=== PATIENT | female | born 1950 | race Caucasian/White ===

== ENCOUNTER 2017-09-30 17:16 | Inpatient (IN) | payer OTHER, MEDICARE ==
--- NOTE | 2017-09-30 17:25 | PDOC ---
Rapid Medical Evaluation Time Seen by Provider: 09/30/17 17:24 Medical Evaluation: 09/30/17 17:30 Pt presents to the ED c/o near syncope this morning. Pt with hx of Afib. States she is SOB. Afib with RVR on EKG in triage Exam: Ambulatory,sweaty, AAOx3. Orders: labs, urine ekg, cxr Pt to proceed to ED for forther eval Discharge Disposition - Diagnosis SOB (shortness of breath), Near syncope - Referrals - Patient Instructions - Post Discharge Activity
[2017-09-30] MEDS ORDERED: SODIUM CHLORIDE 0.9% 500 ML INFUS.BAG IV ONE ×4 (18:06→20:16)
[2017-09-30] MEDS ORDERED: ACETAMINOPHEN 1000 MG/100 ML VIAL (NON FORMULARY) IVPB ONE (18:10)
[2017-09-30 18:19] LABS: URINE APPEARANCE CLEAR; URINE BILIRUBIN NEGATIVE (<2.0 mg/dL); URINE COLOR YELLOW; URINE GLUCOSE (UA) NEGATIVE (NEGATIVE); URINE KETONE NEGATIVE (NEGATIVE); URINE NITRITE NEGATIVE (NEGATIVE); URINE PROTEIN NEGATIVE (NEGATIVE); URINE UROBILINOGEN NEGATIVE mg/dL (0.2-1.0)
--- NOTE | 2017-09-30 18:19 | PDOC ---
History of Present Illness - General Chief Complaint: Weakness Stated Complaint: FATIGUE Time Seen by Provider: 09/30/17 17:24 - History of Present Illness Initial Comments: 09/30/17 18:19 67 yo F w a hx of Afib and catheter ablation, hypothyroidism, HTN is here after an episode of chest pain associated with severe SOB, lightheadedness and feeling like she was going to pass out. The patient came into the ER in rapid Afib. Her systolic BP at home was 84. She reports having had a fever yesterday for which she took tylenol. When she woke up this morning her heart was pounding and she became short of breath, was very nauseous and vomited. Her vomitus was NB/NB. She also endorses dysuria and frequency. 09/30/17 18:19 Past History - Past Medical History Allergies/Adverse Reactions: Allergies Allergy/AdvReac Type Severity Reaction Status Date / Time No Known Allergies Allergy Verified 09/30/17 17:31 Home Medications: Ambulatory Orders Azilsartan Medoxomil [Edarbi] 40 mg PO DAILY 09/30/17 Bupropion HCl [Bupropion Xl] 150 mg PO DAILY 09/30/17 Chlorthalidone 12.5 mg PO DAILY 09/30/17 Levothyroxine [Synthroid -] 75 mcg PO DAILY 09/30/17 Pantoprazole Sodium 40 mg PO PRN PRN 09/30/17 Rivaroxaban [Xarelto -] 20 mg PO DAILY 09/30/17 Sotalol HCl [Betapace -] 80 mg PO BID 09/30/17 COPD: No Other medical history: SYNCOPE, ATRIAL; FIB WITH RVR - Suicide/Smoking/Psychosocial Hx Smoking History: Never smoked Hx Alcohol Use: No Drug/Substance Use Hx: No Review of Systems - Review of Systems Comments:: 09/30/17 18:28 CONSTITUTIONAL: Positive: Fever, chills, diaphoresis Absent: generalized weakness, malaise, loss of appetite HEENT: Absent: rhinorrhea, nasal congestion, throat pain, throat swelling, difficulty swallowing, mouth swelling, ear pain, eye pain, visual Changes CARDIOVASCULAR: Positive: Chest pain, near-syncope, palpitations, irregular heart rate, lightheadedness, preipheral edema RESPIRATORY: Positive: shortness of breath, Absent: cough, dyspnea with exertion, orthopnea, wheezing, stridor, hemoptysis GASTROINTESTINAL: Positive: Nausea, vomiting Absent: abdominal pain, abdominal distension, diarrhea, constipation, melena, hematochezia GENITOURINARY: Positive: Dysuria, frequency Absent: urgency, hesitancy, hematuria, flank pain, genital pain MUSCULOSKELETAL: Absent: myalgia, arthralgia, joint swelling SKIN: Absent: rash, itching, pallor HEMATOLOGIC/IMMUNOLOGIC: Absent: easy bleeding, easy bruising, lymphadenopathy, frequent infections ENDOCRINE: Absent: unexplained weight gain, unexplained weight loss, heat intolerance, cold intolerance NEUROLOGIC: Absent: headache, focal weakness or paresthesias, dizziness, unsteady gait, seizure, mental status changes, bladder or bowel incontinence PSYCHIATRIC: Absent: anxiety, depression, suicidal or homicidal ideation, hallucinations. *Physical Exam - Vital Signs Last Vital Signs Temp Pulse Resp BP Pulse Ox 97.4 F L 134 H 12 147/66 99 09/30/17 17:31 09/30/17 17:31 09/30/17 17:31 09/30/17 17:31 09/30/17 17:31 - Physical Exam Comments: 09/30/17 18:30 GENERAL: Patient is sweating profusely. Well developed, well nourished. Awake and alert. No acute distress. HEENT: Normocephalic, atraumatic. PERRLA, EOMI. No conjunctival pallor. Sclera are non- icteric. Moist mucous membranes. Oropharynx is clear. NECK: Supple. Full ROM. No JVD. Carotid pulses 2+ and symmetric, without bruits. No thyromegaly. No lymphadenopathy. CARDIOVASCULAR: Patient is tachycardic. The rhythym is irregular - AFIB. No murmurs, rubs, or gallops. Distal pulses are 2+ and symmetric. PULMONARY: Patient is having difficulty taking deep breaths. She is SOB and tachypneic. Lungs clear to auscultation bilaterally. No wheezing, rales or rhonchi. ABDOMINAL: Soft. Non-tender. Non-distended. No rebound or guarding. No organomegaly. Normoactive bowel sounds. MUSCULOSKELETAL Normal range of motion at all joints. No bony deformities or tenderness. No CVA tenderness. EXTREMITIES: 1+ ankle edema. No cyanosis. No clubbing. No calf tenderness. SKIN: Hot and sweaty. Normal capillary refill. No rashes. No jaundice. NEUROLOGICAL: Alert, awake, appropriate. Cranial nerves 2-12 intact. No deficits to light touch and temperature in face, upper extremities and lower extremities. No motor deficits in the in face, upper extremities and lower extremities. Normoreflexic in the upper and lower extremities. Normal speech. Toes are down-going bilaterally. Gait is normal without ataxia. PSYCHIATRIC: Cooperative. Good eye contact. Appropriate mood and affect. ED Treatment Course - LABORATORY CBC & Chemistry Diagram: 09/30/17 17:57 10/02/17 05:30 Medical Decision Making - Medical Decision Making 09/30/17 18:34 67 yo F w a hx of Afib and catheter ablation, hypothyroidism, HTN is here after an episode of chest pain associated with severe SOB, lightheadedness, N/V, subjective fever, dysuria, rapid Afib, and is hypotensive. Assessment: she reports being febrile at home yesterday and having dysuria today. If she has an infection that can be the cause of her AFIB. Her BP in the ER has been consistently HYPOTENSIVE (88/69) despite her hypertensive triage BP. Plan: Sepsis workup given tachycardia, tachypnea, hypotension, subjective fever. -resuscitate with fluids then re-check her BP and recheck EKG. -Patient will be admitted. UA shows UTI - starting ceftriaxone. After a liter of NS she is still hypotensive to 93/60 - Going to give her Amio to control rhythym. 09/30/17 19:36 09/30/17 19:43 10/02/17 12:01 *DC/Admit/Observation/Transfer Diagnosis at time of Disposition: SOB (shortness of breath), Near syncope UTI (urinary tract infection) Qualifiers: Urinary tract infection type: site unspecified Hematuria presence: without hematuria Qualified Code(s): N39.0 - Urinary tract infection, site not specified - Discharge Dispostion Condition at time of disposition: Guarded Decision to Admit order: Yes - Referrals - Patient Instructions - Post Discharge Activity
[2017-09-30 18:24] LABS: EOS % 0.7 % (0-4.5); HEMATOCRIT 42.7 % (32.4-45.2); HEMOGLOBIN 14.6 GM/dL (10.7-15.3); MCH 30.5 pg (25.7-33.7); MCHC 34.3 g/dl (32.0-36.0); MEAN PLT VOLUME 9.2 fl (7.5-11.1); MONO % 12.6 % (3.8-10.2); NEUT % 48.7 % (42.8-82.8); PLATELET COUNT 240 K/MM3 (134-434); RBC 4.79 M/mm3 (3.60-5.2); RDW 13.3 % (11.6-15.6); WHITE BLOOD COUNT 4.9 K/mm3 (4.0-10.0)
[2017-09-30] MEDS ORDERED: ACETAMINOPHEN INJECTION 100 ML IVPB ONE (18:24)
[2017-09-30 18:28] LABS: URINE LEUK ESTERASE 2+ (NEGATIVE)
[2017-09-30 18:41] LABS: CALCIUM 9.1 mg/dL (8.5-10.1); PHOSPHOROUS 2.7 mg/dL (2.5-4.9)
[2017-09-30 18:43] LABS: ALBUMIN 3.5 g/dl (3.4-5.0); ANION GAP 9 (8-16); BLOOD UREA NITROGEN 17 mg/dL (7-18); CALCIUM 8.9 mg/dL (8.5-10.1); CHLORIDE 100 mmol/L (98-107); CO2 26 mmol/L (21-32); CREATININE 0.8 mg/dL (0.55-1.02); GLUCOSE,RANDOM 129 mg/dL (74-106); POTASSIUM 3.6 mmol/L (3.5-5.1); SGOT/AST 16 U/L (15-37); SGPT/ALT 29 U/L (12-78); SODIUM 135 mmol/L (136-145)
[2017-09-30 18:47] LABS: ALK PHOS 69 U/L (45-117); BILIRUBIN,TOTAL 0.4 mg/dL (0.2-1.0); N-TERMINAL BNP 384.67 pg/ml (5-125); TOT PROT 6.9 g/dl (6.4-8.2)
[2017-09-30 19:07] LABS: INR 1.07 (0.82-1.09); PROTHROMBIN TIME (PATIENT) 12.1 SEC (9.7-13.0)
[2017-09-30 19:15] LABS: EPI CELLS RARE /HPF (FEW); URINE HYALINE CAST 1 /lpf; URINE MUCUS RARE
[2017-09-30] MEDS ORDERED: METOPROLOL TARTRATE 5 MG/5 ML VIAL IVPUSH ONE (19:43)
--- NOTE | 2017-09-30 19:50 | PDOC ---
Attending Attestation - Resident Resident Name: Lalo Baumann - ED Attending Attestation I have performed the following: I have examined & evaluated the patient, The case was reviewed & discussed with the resident, I agree w/resident's findings & plan, Exceptions are as noted - HPI HPI: 09/30/17 19:45 "The patient is a 67 year old female, with a significant PMH of hypertension, hypothyroidism, atrial fibrillation on sotalol, who presents to the emergency department complaining of an episode of shortness of breath, lightheadedness and palpitations beginning this morning. The patient states upon waking up this morning she had palpitations, shortness of breath. The patient states she felt like she was going to pass out but denies any loss of consciousness. The patient also reports that she has been having fevers since last night. SHe endorses dysuria and urgency, as well as one episode of vomiting but denies abdominal pain or diarrhea. The patient denies leg swelling, calf tenderness, or headache. Denies diarrhea, melena, hematochezia, constipation, urinary frequency and hematuria. Allergies: NKA " - Physicial Exam PE: 09/30/17 19:50 "GENERAL: Awake, alert, and fully oriented, in no acute distress. HEAD: No signs of trauma EYES: PERRLA, EOMI, sclera anicteric, conjunctiva clear ENT: Auricles normal inspection, hearing grossly normal, nares patent, oropharynx clear without exudates. Moist mucosa NECK: Nontender, no stepoffs, Normal ROM, supple, no lymphadenopathy, JVD, or masses LUNGS: Breath sounds equal, clear to auscultation bilaterally. No wheezes, and no crackles HEART: irregularly irregular, normal S1 and S2, no murmurs, rubs or gallops ABDOMEN: Soft, nontender, normoactive bowel sounds. No guarding, no rebound. No masses EXTREMITIES: Normal range of motion, no edema. No clubbing or cyanosis. No cords, erythema, or tenderness NEUROLOGICAL: Cranial nerves II through XII intact. 5/5 strength and sensation in all extremities, Normal speech, normal gait, normal cerebellar function SKIN: Warm, Dry, normal turgor, no rashes or lesions noted. " - Medical Decision Making 09/30/17 19:50 67 F with SOB, palpitations, found to be in rapid afib. Pt also with fevers and chills with dysuria, concerning for possible sepsis from urinary source. Pt currently hypotensive. Will fluid resuscitate and rate control when BP is improved. - Labs, trop, BNP - Cultures - UA, CXR - IVF, tylenol - metoprolol when BP more stable
[2017-09-30] MEDS ORDERED: cefTRIAXone SODIUM 1 GM VIAL ONE (19:56)
[2017-09-30] MEDS ORDERED: METOPROLOL TARTRATE 5 MG/5 ML VIAL ONE (19:56)
[2017-09-30] MEDS ORDERED: AMIODARONE HCL 150 MG/3 ML VIAL IVPUSH ONE (20:51)
[2017-09-30] MEDS: AMIODARONE IN DEXTROSE,ISO-OSM 360 MG/200 ML BAG IVPB SCH (21:10)
[2017-09-30] MEDS ORDERED: RIVAROXABAN 15 MG TABLET PO ONE (22:09)
[2017-09-30] MEDS ORDERED: RIVAROXABAN 20 MG TABLET PO ONE (23:00)
[2017-10-01] MEDS: AMIODARONE IN DEXTROSE,ISO-OSM 360 MG/200 ML BAG IVPB SCH (03:20)
[2017-10-01 03:55] VITALS: BMI 32.0
[2017-10-01] MEDS: LEVOTHYROXINE NA 75 MCG TABLET (FP) PO SCH (10:34)
[2017-10-01] MEDS: PANTOPRAZOLE 40 MG TABLET (FP) PO SCH (10:34)
--- NOTE | 2017-10-01 10:44 | HP ---
DATE OF ADMISSION: 09/30/2017 HISTORY OF PRESENT ILLNESS: This is a 67-year-old female known to have atrial fibrillation, hypothyroidism, hypertension, status post catheter ablation, who came to the emergency room with severe chest pain and near syncope. She also had fever, dysuria. In the emergency room, she was diagnosed to have atrial fibrillation with rapid ventricular rate. Also has urine with WBC and leukocyte esterase. So, she got admitted. Dr. Boyle is her placement assistant. Consulted his associate on amiodarone drip. PHYSICAL EXAMINATION: General: This morning, patient is feeling better. Vital signs: BP 110/70, pulse 96 to 106 irregular, respirations 22, temperature 98. HEENT: Unremarkable. Neck: supple. No JVD. Lungs: No wheeze or rales. Heart: S1, S2 normal. No S3, S4. Abdomen: Soft. Extremities: Legs no edema. Neurologic: Grossly normal. DIAGNOSTIC DATA: Chest x-ray showed mild CHF. EKG atrial fibrillation with rapid ventricular rate. LABORATORY REPORTS: Urine leukocyte esterase 2+, WBC 19. INR 1.07. WBC 4.9, hemoglobin 14.6, platelets 240. Electrolytes are normal: Sodium 135, blood sugra 129. Troponin MB 0.06. B-peptide 38,000. TSH 0.55. FINAL DIAGNOSIS: Congestive heart failure, rapid atrial fibrillation, and urinary tract infection. PLAN: Cardiology medication according to the placement assistant. I will give her IV. Will follow. Frank [id number]
--- NOTE | 2017-10-01 11:01 | CON.CARD ---
Consult Consult Specialty:: Cardiology Referred by:: Megan Puente MD Reason for Consultation:: Rapid atrial fibrillation - History of Present Illness Chief Complaint: Palpitations, light-headedness History of Present Illness: The patient is a 67 year old female, with a significant PMH of hypertension, hypothyroidism, paroxysmal atrial fibrillation [id number] 3 post RFA PVI 2014 on sotalol and Xarelto presented to emergency department complaining of shortness of breath, lightheadedness without true syncope, chest tightness and palpitations. She also reports subjective fevers and dysuria, but denies orthopnea, PND or LE edema. She was noted to be in rapid afib with SBP 70s-80s, rate-controlled overnight with improvement of hemodynamics on amiodarone gtt. Confirms compliance with sotalol and Xarelto. - History Source History Provided By: Patient Limitations to Obtaining History: No Limitations - Past Medical History Cardio/Vascular: Yes: AFIB, HTN ...: No Endocrine: Yes: Hypothyroidism - Alcohol/Substance Use Hx Alcohol Use: No - Smoking History Smoking history: Never smoked Home Medications - Allergies Allergies/Adverse Reactions: Allergies Allergy/AdvReac Type Severity Reaction Status Date / Time No Known Allergies Allergy Verified 09/30/17 17:31 - Home Medications Home Medications: Ambulatory Orders Azilsartan Medoxomil [Edarbi] 40 mg PO DAILY 09/30/17 Bupropion HCl [Bupropion Xl] 150 mg PO DAILY 09/30/17 Chlorthalidone 12.5 mg PO DAILY 09/30/17 Levothyroxine [Synthroid -] 75 mcg PO DAILY 09/30/17 Pantoprazole Sodium 40 mg PO PRN PRN 09/30/17 Rivaroxaban [Xarelto -] 20 mg PO DAILY 09/30/17 Sotalol HCl [Betapace -] 80 mg PO BID 09/30/17 Review of Systems - Review of Systems Cardiovascular: reports: Chest Pain, Palpitations, Shortness of Breath Neurological: reports: Dizziness, Weakness Vital Signs: Vital Signs Temperature 97.3 F L 10/01/17 01:28 Pulse Rate 112 H 10/01/17 01:28 Respiratory Rate 20 10/01/17 01:28 Blood Pressure 92/56 10/01/17 01:28 O2 Sat by Pulse Oximetry (%) 97 09/30/17 23:00 Constitutional: Yes: No Distress, Calm Neck: Yes: Supple Respiratory: Yes: Regular, CTA Bilaterally Gastrointestinal: Yes: Normal Bowel Sounds, Soft Cardiovascular: Yes: Tachycardia, Pulse Irregular JVD: No Carotid Bruit: No Heart Sounds: Yes: S1, S2 Edema: No - Other Data Labs, Other Data: CBC, BMP 09/30/17 17:57 09/30/17 17:57 INR, PTT INR 1.07 (0.82-1.09) 09/30/17 17:57 Troponin, BNP 09/30/17 09/30/17 17:57 17:57 Troponin I 0.06 H B-Natriuretic Peptide 384.67 H Troponin, BNP 09/30/17 09/30/17 17:57 17:57 Troponin I 0.06 H B-Natriuretic Peptide 384.67 H Afib @ [address]-T changes QTc 432 msec Imaging - Results Chest X-ray: Report Reviewed (Congestion) Problem List - Problems (1) Atrial fibrillation with rapid ventricular response Code(s): I48.91 - UNSPECIFIED ATRIAL FIBRILLATION (2) S/P radiofrequency ablation operation for arrhythmia Code(s): Z98.890 - OTHER SPECIFIED POSTPROCEDURAL STATES; Z86.79 - PERSONAL HISTORY OF OTHER DISEASES OF THE CIRCULATORY SYSTEM (3) Hypertensive heart disease Code(s): I11.9 - HYPERTENSIVE HEART DISEASE WITHOUT HEART FAILURE Qualifiers: Heart failure presence: without heart failure Qualified Code(s): I11.9 - Hypertensive heart disease without heart failure (4) Hypothyroidism Code(s): E03.9 - HYPOTHYROIDISM, UNSPECIFIED Qualifiers: Hypothyroidism type: unspecified Qualified Code(s): E03.9 - Hypothyroidism , unspecified (5) Near syncope Code(s): R55 - SYNCOPE AND COLLAPSE (6) SOB (shortness of breath) Code(s): R06.02 - SHORTNESS OF BREATH (7) UTI (urinary tract infection) Code(s): N39.0 - URINARY TRACT INFECTION, SITE NOT SPECIFIED Qualifiers: Urinary tract infection type: site unspecified Hematuria presence: without hematuria Qualified Code(s): N39.0 - Urinary tract infection, site not specified Assessment/Plan 03/19/2017 Echo: Normal LV size and fxn LVEF 60-65%, mild LAE 4.1 cm, JENELLE with shunt, normal RV size and fxn, mild-mod MR, mild TR RVSP 30.7 06/04/2016 P-Myoview: No ischemia 1. Paroxysmal atrial fibrillation h/o RFA with RVR and altered hemodynamics improved with rate-control 2. H/o atypical atrial flutter post spontaneous cardioversion to sinus 2014 3. Hypertensive heart disease 4. Hypothyroidism 5. Demand ischemia 6. Hyperlipidemia with statin intolerance 7. OSAS compliant with cpap 8. Diastolic dysfunction, euvolemic P:1. Wean off amioadarone gtt, resume sotalol 80 bid, add verapamil 40 bid ( cardizem ineffectual in past) for improved rate-control, hold ARB pending improved hemodynamics, continue Xarelto, trend trops to document peak 2. If afib persists despite rate-control, plan for DCCV without JAKE guidance as patient confirms compliance with Xarelto 3. Empiric abx per C&S agree with switch off levofloxacin to ceftraixone given risk of QT prolongation while on verapamil and sotalol 4. Thank you for consultative opportunity
[2017-10-01] MEDS ORDERED: PT OWN MED DRAWER 7, Y5N ONE ×3 (11:09→20:38)
--- NOTE | 2017-10-01 11:35 | EKG ---
Test Reason : Blood Pressure : / mmHG Vent. Rate : 143 BPM Atrial Rate : 357 BPM P-R Int : 000 ms QRS Dur : 080 ms QT Int : 280 ms P-R-T Axes : 000 032 045 degrees QTc Int : 432 ms ATRIAL FIBRILLATION WITH RAPID VENTRICULAR RESPONSE WITH PREMATURE VENTRICULAR OR ABERRANTLY CONDUCTED COMPLEXES NONSPECIFIC ST AND T WAVE ABNORMALITY ABNORMAL ECG NO PREVIOUS ECGS AVAILABLE Confirmed by IRMA RUDOLPH MD ([id number]) on 10/01/2017 11:34:41 AM Referred By: Confirmed By:IRMA RUDOLPH MD
[2017-10-01] MEDS: SOTALOL HCL 80 MG TABLET (FP) PO SCH ×2 (12:17→21:21)
[2017-10-01] MEDS: VERAPAMIL HCL 40 MG TABLET (FP) PO SCH ×2 (13:39→21:21)
--- NOTE | 2017-10-01 13:39 | CON.ID ---
Consult Consult Specialty:: infectious diseases Referred by:: Reason for Consultation:: sepsis - History of Present Illness Chief Complaint: fever,weakness,uti History of Present Illness: 67 year old female, with a significant PMH of hypertension, hypothyroidism, paroxysmal atrial fibrillation post RFA PVI 09/10/2014 on sotalol and Xarelto presented to emergency department complaining of shortness of breath, lightheadedness , chest tightness and palpitations. patient also mentions that she has been having dysuria and when she came in the er was hypotensive in rapid afib patient states that she does not get utis and now she feels a bit ok patient has been worked up and has got a dose of levaquin and all cx are pending she has been in and out of sinus rhythm she also was given amiodrone - History Source History Provided By: Patient Limitations to Obtaining History: No Limitations - Past Medical History Cardio/Vascular: Yes: AFIB, HTN ...: No Endocrine: Yes: Hypothyroidism - Alcohol/Substance Use Hx Alcohol Use: No - Smoking History Smoking history: Never smoked Home Medications - Allergies Allergies/Adverse Reactions: Allergies Allergy/AdvReac Type Severity Reaction Status Date / Time No Known Allergies Allergy Verified 09/30/17 17:31 - Home Medications Home Medications: Ambulatory Orders Azilsartan Medoxomil [Edarbi] 40 mg PO DAILY 09/30/17 Bupropion HCl [Bupropion Xl] 150 mg PO DAILY 09/30/17 Chlorthalidone 12.5 mg PO DAILY 09/30/17 Levothyroxine [Synthroid -] 75 mcg PO DAILY 09/30/17 Pantoprazole Sodium 40 mg PO PRN PRN 09/30/17 Rivaroxaban [Xarelto -] 20 mg PO DAILY 09/30/17 Sotalol HCl [Betapace -] 80 mg PO BID 09/30/17 Review of Systems - Review of Systems Constitutional: reports: Weakness, Other Eyes: reports: No Symptoms HENT: reports: No Symptoms Neck: reports: No Symptoms Cardiovascular: reports: Chest Pain, Palpitations, Shortness of Breath Respiratory: reports: SOB, SOB on Exertion Gastrointestinal: reports: No Symptoms Genitourinary: reports: Burning, Dysuria Musculoskeletal: reports: No Symptoms Integumentary: reports: No Symptoms Neurological: reports: No Symptoms Endocrine: reports: No Symptoms Hematology/Lymphatic: reports: No Symptoms Psychiatric: reports: No Symptoms Physical Exam Vital Signs: Vital Signs Temperature 98 F 10/01/17 10:00 Pulse Rate 108 H 10/01/17 10:00 Respiratory Rate 20 10/01/17 10:00 Blood Pressure 107/78 10/01/17 10:00 O2 Sat by Pulse Oximetry (%) 97 09/30/17 23:00 Constitutional: Yes: No Distress, Calm, Obese Neck: Yes: Supple, Trachea Midline Cardiovascular: Yes: Pulse Irregular Respiratory: Yes: Regular, CTA Bilaterally Gastrointestinal: Yes: Normal Bowel Sounds, Soft Musculoskeletal: Yes: WNL Extremities: Yes: WNL Neurological: Yes: Alert, Oriented Psychiatric: Yes: Alert, Oriented Labs: CBC, BMP 09/30/17 17:57 09/30/17 17:57 Imaging - Results Chest X-ray: Report Reviewed, Image Reviewed Assessment/Plan Problem List - Problems (1) Atrial fibrillation with rapid ventricular response Code(s): I48.91 - UNSPECIFIED ATRIAL FIBRILLATION (2) S/P radiofrequency ablation operation for arrhythmia Code(s): Z98.890 - OTHER SPECIFIED POSTPROCEDURAL STATES; Z86.79 - PERSONAL HISTORY OF OTHER DISEASES OF THE CIRCULATORY SYSTEM (3) Hypertensive heart disease Code(s): I11.9 - HYPERTENSIVE HEART DISEASE WITHOUT HEART FAILURE Qualifiers: Heart failure presence: without heart failure Qualified Code(s): I11.9 - Hypertensive heart disease without heart failure (4) Hypothyroidism Code(s): E03.9 - HYPOTHYROIDISM, UNSPECIFIED Qualifiers: Hypothyroidism type: unspecified Qualified Code(s): E03.9 - Hypothyroidism , unspecified (5) Near syncope Code(s): R55 - SYNCOPE AND COLLAPSE (6) SOB (shortness of breath) Code(s): R06.02 - SHORTNESS OF BREATH (7) UTI (urinary tract infection) Code(s): N39.0 - URINARY TRACT INFECTION, SITE NOT SPECIFIED Qualifiers: Urinary tract infection type: site unspecified Hematuria presence: without hematuria Qualified Code(s): N39.0 - Urinary tract infection, site not specified plan will start patient on ceftriaxone will stop levaquin await for all cx to come back cardiac monitoring as per cardiology rest as per the team
[2017-10-01] MEDS: RIVAROXABAN 20 MG TABLET PO SCH (17:44)
[2017-10-01] MEDS ORDERED: ACETAMINOPHEN 325 MG TABLET (FP) PO PRN (18:52)
[2017-10-02] MEDS: LEVOTHYROXINE NA 75 MCG TABLET (FP) PO SCH (06:50)
[2017-10-02 07:15] LABS: ANION GAP 7 (8-16); BLOOD UREA NITROGEN 12 mg/dL (7-18); CALCIUM 8.7 mg/dL (8.5-10.1); CHLORIDE 108 mmol/L (98-107); CO2 27 mmol/L (21-32); CREATININE 0.7 mg/dL (0.55-1.02); GLUCOSE,RANDOM 87 mg/dL (74-106); SODIUM 142 mmol/L (136-145)
--- NOTE | 2017-10-02 08:58 | PN ---
Progress Note, Physician History of Present Illness: Remains in rapid afib despite verapamil. - Current Medication List Current Medications: Active Medications Acetaminophen (Tylenol -) 650 mg PO Q6H PRN PRN Reason: FEVER Last Admin: 10/01/17 18:57 Dose: 650 mg Bupropion HCl (Wellbutrin Xl -) 150 mg PO DAILY [facility] Last Admin: 10/01/17 11:31 Dose: 150 mg Ceftriaxone Sodium 1 gm/ (Dextrose) 50 mls @ 200 mls/hr IVPB DAILY [facility]; Protocol Levothyroxine Sodium (Synthroid -) 75 mcg PO DAILY@0700 [facility] Last Admin: 10/02/17 06:50 Dose: 75 mcg Pantoprazole Sodium (Protonix -) 40 mg PO DAILY [facility] Last Admin: 10/01/17 10:34 Dose: 40 mg Rivaroxaban (Xarelto -) 20 mg PO DAILY@1800 [facility] Last Admin: 10/01/17 17:44 Dose: 20 mg Sotalol HCl (Betapace -) 80 mg PO BID [facility] Last Admin: 10/01/17 21:21 Dose: 80 mg Verapamil HCl (Calan -) 40 mg PO BID [facility] Last Admin: 10/01/17 21:21 Dose: 40 mg - Objective Vital Signs: Vital Signs Temperature 97.6 F 10/02/17 05:00 Pulse Rate 83 10/02/17 05:00 Respiratory Rate 17 10/02/17 05:00 Blood Pressure 102/66 10/02/17 05:00 O2 Sat by Pulse Oximetry (%) 100 10/01/17 21:00 Constitutional: Yes: No Distress, Calm Neck: Yes: Supple Cardiovascular: Yes: Tachycardia, Pulse Irregular Respiratory: Yes: Regular, CTA Bilaterally Gastrointestinal: Yes: Normal Bowel Sounds, Soft, Abdomen, Obese Edema: Yes Edema: LLE: Trace, RLE: Trace Labs: CBC, BMP 09/30/17 17:57 10/02/17 05:30 INR, PTT INR 1.07 (0.82-1.09) 09/30/17 17:57 - ....Imaging EKG: Report Reviewed (Tele: Episodes of rapid afib) Problem List - Problems (1) Atrial fibrillation with rapid ventricular response Code(s): I48.91 - UNSPECIFIED ATRIAL FIBRILLATION (2) S/P radiofrequency ablation operation for arrhythmia Code(s): Z98.890 - OTHER SPECIFIED POSTPROCEDURAL STATES; Z86.79 - PERSONAL HISTORY OF OTHER DISEASES OF THE CIRCULATORY SYSTEM (3) Hypertensive heart disease Code(s): I11.9 - HYPERTENSIVE HEART DISEASE WITHOUT HEART FAILURE Qualifiers: Heart failure presence: without heart failure Qualified Code(s): I11.9 - Hypertensive heart disease without heart failure (4) Hypothyroidism Code(s): E03.9 - HYPOTHYROIDISM, UNSPECIFIED Qualifiers: Hypothyroidism type: unspecified Qualified Code(s): E03.9 - Hypothyroidism , unspecified (5) Near syncope Code(s): R55 - SYNCOPE AND COLLAPSE (6) SOB (shortness of breath) Code(s): R06.02 - SHORTNESS OF BREATH (7) UTI (urinary tract infection) Code(s): N39.0 - URINARY TRACT INFECTION, SITE NOT SPECIFIED Qualifiers: Urinary tract infection type: site unspecified Hematuria presence: without hematuria Qualified Code(s): N39.0 - Urinary tract infection, site not specified Assessment/Plan 03/19/2017 Echo: Normal LV size and fxn LVEF 60-65%, mild LAE 4.1 cm, JENELLE with shunt, normal RV size and fxn, mild-mod MR, mild TR RVSP 30.7 06/04/2016 P-Myoview: No ischemia 1. Paroxysmal atrial fibrillation h/o RFA with RVR and altered hemodynamics improved with rate-control 2. H/o atypical atrial flutter post spontaneous cardioversion to sinus 2014 3. Hypertensive heart disease 4. Hypothyroidism 5. Demand ischemia 6. Hyperlipidemia with statin intolerance 7. OSAS compliant with cpap 8. Diastolic dysfunction, euvolemic P:1. Continue sotalol 80 bid and increase verapamil 40 tid (cardizem ineffectual in past) for improved rate-control, hold ARB pending improved hemodynamics, continue Xarelto, trops have peaked 2. If afib persists despite rate-control, plan for DCCV without JAKE guidance as patient confirms compliance with Xarelto 3. Empiric ceftriaxone per C&S
[2017-10-02] MEDS ORDERED: cefTRIAXone SODIUM 1 GM VIAL ONE (09:36)
[2017-10-02] MEDS ORDERED: DEXTROSE 5%-WATER - 50 ML IVPB ONE (09:36)
[2017-10-02] MEDS: SOTALOL HCL 80 MG TABLET (FP) PO SCH ×2 (09:42→23:20)
[2017-10-02] MEDS: PANTOPRAZOLE 40 MG TABLET (FP) PO SCH (09:42)
[2017-10-02] MEDS: VERAPAMIL HCL 40 MG TABLET (FP) PO SCH ×3 (09:42→23:23)
[2017-10-02] MEDS: CEFTRIAXONE 1 GM in DEXTROSE 5%-WATER - 50 ML IVPB SCH (09:42)
--- NOTE | 2017-10-02 13:29 | PN ---
Progress Note, Physician Chief Complaint: Feels better History of Present Illness: Admitted with rapid afib ,CHF and UTI Case discussed with Dr Morgan will need cardiovertion on wednesday - Current Medication List Current Medications: Active Medications Acetaminophen (Tylenol -) 650 mg PO Q6H PRN PRN Reason: FEVER Last Admin: 10/01/17 18:57 Dose: 650 mg Bupropion HCl (Wellbutrin Xl -) 150 mg PO DAILY [facility] Last Admin: 10/02/17 09:42 Dose: 150 mg Ceftriaxone Sodium 1 gm/ (Dextrose) 50 mls @ 200 mls/hr IVPB DAILY [facility]; Protocol Last Admin: 10/02/17 09:42 Dose: 200 mls/hr Levothyroxine Sodium (Synthroid -) 75 mcg PO DAILY@0700 [facility] Last Admin: 10/02/17 06:50 Dose: 75 mcg Pantoprazole Sodium (Protonix -) 40 mg PO DAILY [facility] Last Admin: 10/02/17 09:42 Dose: 40 mg Rivaroxaban (Xarelto -) 20 mg PO DAILY@1800 [facility] Last Admin: 10/01/17 17:44 Dose: 20 mg Sotalol HCl (Betapace -) 80 mg PO BID [facility] Last Admin: 10/02/17 09:42 Dose: 80 mg Verapamil HCl (Calan -) 40 mg PO TID [facility] Last Admin: 10/02/17 09:42 Dose: 40 mg - Objective Vital Signs: Vital Signs Temperature 98 F 10/02/17 09:00 Pulse Rate 106 H 10/02/17 09:00 Respiratory Rate 18 10/02/17 09:00 Blood Pressure 120/82 10/02/17 09:00 O2 Sat by Pulse Oximetry (%) 100 10/02/17 09:00 Constitutional: Yes: Mild Distress Eyes: Yes: WNL HENT: Yes: WNL Neck: Yes: WNL Cardiovascular: Yes: Pulse Irregular Respiratory: Yes: WNL Gastrointestinal: Yes: WNL ...Rectal Exam: Yes: Deferred Genitourinary: Yes: WNL Breast(s): Yes: WNL Musculoskeletal: Yes: WNL Edema: No Neurological: Yes: Alert ...Motor Strength: WNL Psychiatric: Yes: Alert Labs: CBC, BMP 09/30/17 17:57 10/02/17 05:30 INR, PTT INR 1.07 (0.82-1.09) 09/30/17 17:57 Assessment/Plan mavis Thompson ID consult appreciated
--- NOTE | 2017-10-02 16:17 | PN ---
Progress Note, Physician History of Present Illness: doing well no complaints cx reports noted - Current Medication List Current Medications: Active Medications Acetaminophen (Tylenol -) 650 mg PO Q6H PRN PRN Reason: FEVER Last Admin: 10/01/17 18:57 Dose: 650 mg Bupropion HCl (Wellbutrin Xl -) 150 mg PO DAILY [facility] Last Admin: 10/02/17 09:42 Dose: 150 mg Ceftriaxone Sodium 1 gm/ (Dextrose) 50 mls @ 200 mls/hr IVPB DAILY [facility]; Protocol Last Admin: 10/02/17 09:42 Dose: 200 mls/hr Levothyroxine Sodium (Synthroid -) 75 mcg PO DAILY@0700 [facility] Last Admin: 10/02/17 06:50 Dose: 75 mcg Pantoprazole Sodium (Protonix -) 40 mg PO DAILY [facility] Last Admin: 10/02/17 09:42 Dose: 40 mg Rivaroxaban (Xarelto -) 20 mg PO DAILY@1800 [facility] Last Admin: 10/01/17 17:44 Dose: 20 mg Sotalol HCl (Betapace -) 80 mg PO BID [facility] Last Admin: 10/02/17 09:42 Dose: 80 mg Verapamil HCl (Calan -) 40 mg PO TID [facility] Last Admin: 10/02/17 15:32 Dose: 40 mg - Objective Vital Signs: Vital Signs Temperature 98.4 F 10/02/17 14:00 Pulse Rate 113 H 10/02/17 14:00 Respiratory Rate 20 10/02/17 14:00 Blood Pressure 121/75 10/02/17 14:00 O2 Sat by Pulse Oximetry (%) 100 10/02/17 09:00 Constitutional: Yes: No Distress, Calm Cardiovascular: Yes: S1, S2 Respiratory: Yes: Regular, CTA Bilaterally Gastrointestinal: Yes: Normal Bowel Sounds Musculoskeletal: Yes: WNL Extremities: Yes: WNL Neurological: Yes: Alert, Oriented Psychiatric: Yes: Alert, Oriented Labs: CBC, BMP 09/30/17 17:57 10/02/17 05:30 INR, PTT INR 1.07 (0.82-1.09) 09/30/17 17:57 Assessment/Plan Problem List - Problems (1) Atrial fibrillation with rapid ventricular response Code(s): I48.91 - UNSPECIFIED ATRIAL FIBRILLATION (2) S/P radiofrequency ablation operation for arrhythmia Code(s): Z98.890 - OTHER SPECIFIED POSTPROCEDURAL STATES; Z86.79 - PERSONAL HISTORY OF OTHER DISEASES OF THE CIRCULATORY SYSTEM (3) Hypertensive heart disease Code(s): I11.9 - HYPERTENSIVE HEART DISEASE WITHOUT HEART FAILURE Qualifiers: Heart failure presence: without heart failure Qualified Code(s): I11.9 - Hypertensive heart disease without heart failure (4) Hypothyroidism Code(s): E03.9 - HYPOTHYROIDISM, UNSPECIFIED Qualifiers: Hypothyroidism type: unspecified Qualified Code(s): E03.9 - Hypothyroidism , unspecified (5) Near syncope Code(s): R55 - SYNCOPE AND COLLAPSE (6) SOB (shortness of breath) Code(s): R06.02 - SHORTNESS OF BREATH (7) UTI (urinary tract infection) Code(s): N39.0 - URINARY TRACT INFECTION, SITE NOT SPECIFIED Qualifiers: Urinary tract infection type: site unspecified Hematuria presence: without hematuria Qualified Code(s): N39.0 - Urinary tract infection, site not specified plan continue current mgmt will see how patient does tomorrow might deescalate the abx
[2017-10-02] MEDS ORDERED: PT OWN MED DRAWER 7, Y5N ONE ×2 (16:39→20:19)
[2017-10-02] MEDS: RIVAROXABAN 20 MG TABLET PO SCH (17:08)
[2017-10-03] MEDS: LEVOTHYROXINE NA 75 MCG TABLET (FP) PO SCH (06:10)
[2017-10-03] MEDS: VERAPAMIL HCL 40 MG TABLET (FP) PO SCH ×3 (06:10→21:20)
[2017-10-03] MEDS ORDERED: PT OWN MED DRAWER 7, Y5N ONE ×2 (06:14→18:22)
--- NOTE | 2017-10-03 09:13 | PN ---
Progress Note, Physician Chief Complaint: Events noted Remains in AF with RVR at times History of Present Illness: Patient was seen and examined. Awake and alert. Chart was reviewed Denies chest pain or SOB Appears comfortable except for RVR - Current Medication List Current Medications: Active Medications Acetaminophen (Tylenol -) 650 mg PO Q6H PRN PRN Reason: FEVER Last Admin: 10/01/17 18:57 Dose: 650 mg Bupropion HCl (Wellbutrin Xl -) 150 mg PO DAILY [facility] Last Admin: 10/02/17 09:42 Dose: 150 mg Ceftriaxone Sodium 1 gm/ (Dextrose) 50 mls @ 200 mls/hr IVPB DAILY [facility]; Protocol Last Admin: 10/02/17 09:42 Dose: 200 mls/hr Levothyroxine Sodium (Synthroid -) 75 mcg PO DAILY@0700 [facility] Last Admin: 10/03/17 06:10 Dose: 75 mcg Pantoprazole Sodium (Protonix -) 40 mg PO DAILY [facility] Last Admin: 10/02/17 09:42 Dose: 40 mg Rivaroxaban (Xarelto -) 20 mg PO DAILY@1800 [facility] Last Admin: 10/02/17 17:08 Dose: 20 mg Sotalol HCl (Betapace -) 80 mg PO BID [facility] Last Admin: 10/02/17 23:20 Dose: 80 mg Verapamil HCl (Calan -) 40 mg PO TID [facility] Last Admin: 10/03/17 06:10 Dose: 40 mg - Objective Vital Signs: Vital Signs Temperature 97 F L 10/03/17 05:00 Pulse Rate 112 H 10/03/17 05:00 Respiratory Rate 16 10/03/17 05:00 Blood Pressure 101/76 10/03/17 05:00 O2 Sat by Pulse Oximetry (%) 97 10/02/17 20:00 HENT: Yes: Atraumatic Neck: Yes: Supple Cardiovascular: Yes: Pulse Irregular, S1, S2 Respiratory: Yes: CTA Bilaterally Gastrointestinal: Yes: Normal Bowel Sounds, Soft. No: Tenderness Edema: No Additional Findings/Remarks: - Review of Systems Constitutional: denies: Chills, Fever Cardiovascular: denies: Chest Pain, (+) Palpitations, denies: Shortness of Breath Respiratory: denies: Cough, Hemoptysis, Orthopnea, SOB, SOB on Exertion Gastrointestinal: denies: Abdominal Pain, Constipation, Diarrhea, Melena, Nausea , Rectal Bleeding, Vomiting Genitourinary: denies: Dysuria, Hematuria Musculoskeletal: denies: Back Pain, Joint Pain Neurological: denies: Dizziness, Headache, Numbness, Parasthesia, Seizure, Syncope, Weakness Problem List - Problems (1) Atrial fibrillation with rapid ventricular response Code(s): I48.91 - UNSPECIFIED ATRIAL FIBRILLATION (2) Hypertensive heart disease Code(s): I11.9 - HYPERTENSIVE HEART DISEASE WITHOUT HEART FAILURE Qualifiers: Heart failure presence: without heart failure Qualified Code(s): I11.9 - Hypertensive heart disease without heart failure (3) Hypothyroidism Code(s): E03.9 - HYPOTHYROIDISM, UNSPECIFIED Qualifiers: Hypothyroidism type: unspecified Qualified Code(s): E03.9 - Hypothyroidism , unspecified (4) S/P radiofrequency ablation operation for arrhythmia Code(s): Z98.890 - OTHER SPECIFIED POSTPROCEDURAL STATES; Z86.79 - PERSONAL HISTORY OF OTHER DISEASES OF THE CIRCULATORY SYSTEM (5) UTI (urinary tract infection) Code(s): N39.0 - URINARY TRACT INFECTION, SITE NOT SPECIFIED Qualifiers: Urinary tract infection type: site unspecified Hematuria presence: without hematuria Qualified Code(s): N39.0 - Urinary tract infection, site not specified Assessment/Plan 1. Paroxysmal atrial fibrillation h/o RFA with RVR 2. Hypertensive heart disease 3. Hypothyroidism 4. Demand ischemia 5. Hyperlipidemia with statin intolerance 6. OSAS compliant with CPAP 7. Diastolic dysfunction, euvolemic PLAN: 1. Titrate Sotalol up as tolerated and also titrate Verapamil for improved rate- control. Hold ARB pending improved hemodynamics and continue Xarelto 2. If AF persists despite rate-control, plan for DCCV without JAKE guidance as patient has been compliant with Xarelto 3. Empiric antibiotics Further plans are to follow Eldon Sorensen MD
[2017-10-03] MEDS ORDERED: DEXTROSE 5%-WATER - 50 ML IVPB ONE (09:19)
[2017-10-03] MEDS ORDERED: cefTRIAXone SODIUM 1 GM VIAL ONE (09:19)
[2017-10-03] MEDS: SOTALOL HCL 80 MG TABLET (FP) PO SCH ×2 (09:33→21:20)
[2017-10-03] MEDS: CEFTRIAXONE 1 GM in DEXTROSE 5%-WATER - 50 ML IVPB SCH (09:33)
[2017-10-03] MEDS: PANTOPRAZOLE 40 MG TABLET (FP) PO SCH (09:34)
[2017-10-03] MEDS ORDERED: INSULIN (NOVOLOG) ASPART 100 UNITS/ML 10ML VIAL ONE (11:20)
--- NOTE | 2017-10-03 11:29 | PN ---
Progress Note, Physician History of Present Illness: patient stable with rvr no complaints all results noted - Current Medication List Current Medications: Active Medications Acetaminophen (Tylenol -) 650 mg PO Q6H PRN PRN Reason: FEVER Last Admin: 10/01/17 18:57 Dose: 650 mg Bupropion HCl (Wellbutrin Xl -) 150 mg PO DAILY [facility] Last Admin: 10/03/17 09:34 Dose: 150 mg Ceftriaxone Sodium 1 gm/ (Dextrose) 50 mls @ 200 mls/hr IVPB DAILY [facility]; Protocol Last Admin: 10/03/17 09:33 Dose: 200 mls/hr Levothyroxine Sodium (Synthroid -) 75 mcg PO DAILY@0700 [facility] Last Admin: 10/03/17 06:10 Dose: 75 mcg Pantoprazole Sodium (Protonix -) 40 mg PO DAILY [facility] Last Admin: 10/03/17 09:34 Dose: 40 mg Rivaroxaban (Xarelto -) 20 mg PO DAILY@1800 [facility] Last Admin: 10/02/17 17:08 Dose: 20 mg Sotalol HCl (Betapace -) 80 mg PO BID [facility] Last Admin: 10/03/17 09:33 Dose: 80 mg Sotalol HCl (Betapace -) 80 mg PO ONCE ONE Stop: 10/03/17 15:01 Verapamil HCl (Calan -) 40 mg PO TID [facility] Last Admin: 10/03/17 06:10 Dose: 40 mg - Objective Vital Signs: Vital Signs Temperature 98.4 F 10/03/17 09:00 Pulse Rate 114 H 10/03/17 09:00 Respiratory Rate 20 10/03/17 09:00 Blood Pressure 126/67 10/03/17 09:00 O2 Sat by Pulse Oximetry (%) 97 10/02/17 20:00 Constitutional: Yes: No Distress, Calm Cardiovascular: Yes: Regular Rate and Rhythm, Tachycardia Respiratory: Yes: Regular, CTA Bilaterally Gastrointestinal: Yes: Normal Bowel Sounds, Soft Musculoskeletal: Yes: WNL Extremities: Yes: WNL Neurological: Yes: Alert, Oriented Psychiatric: Yes: Alert, Oriented Labs: CBC, BMP 09/30/17 17:57 10/02/17 05:30 INR, PTT INR 1.07 (0.82-1.09) 09/30/17 17:57 Assessment/Plan Problem List - Problems (1) Atrial fibrillation with rapid ventricular response Code(s): I48.91 - UNSPECIFIED ATRIAL FIBRILLATION (2) S/P radiofrequency ablation operation for arrhythmia Code(s): Z98.890 - OTHER SPECIFIED POSTPROCEDURAL STATES; Z86.79 - PERSONAL HISTORY OF OTHER DISEASES OF THE CIRCULATORY SYSTEM (3) Hypertensive heart disease Code(s): I11.9 - HYPERTENSIVE HEART DISEASE WITHOUT HEART FAILURE Qualifiers: Heart failure presence: without heart failure Qualified Code(s): I11.9 - Hypertensive heart disease without heart failure (4) Hypothyroidism Code(s): E03.9 - HYPOTHYROIDISM, UNSPECIFIED Qualifiers: Hypothyroidism type: unspecified Qualified Code(s): E03.9 - Hypothyroidism , unspecified (5) Near syncope Code(s): R55 - SYNCOPE AND COLLAPSE (6) SOB (shortness of breath) Code(s): R06.02 - SHORTNESS OF BREATH (7) UTI (urinary tract infection) Code(s): N39.0 - URINARY TRACT INFECTION, SITE NOT SPECIFIED Qualifiers: Urinary tract infection type: site unspecified Hematuria presence: without hematuria Qualified Code(s): N39.0 - Urinary tract infection, site not specified plan continue current mgmt stopped abx rest as per the team and cardiology
--- NOTE | 2017-10-03 12:39 | PN ---
Progress Note, Physician Chief Complaint: Feels much better - Current Medication List Current Medications: Active Medications Acetaminophen (Tylenol -) 650 mg PO Q6H PRN PRN Reason: FEVER Last Admin: 10/01/17 18:57 Dose: 650 mg Bupropion HCl (Wellbutrin Xl -) 150 mg PO DAILY [facility] Last Admin: 10/03/17 09:34 Dose: 150 mg Levothyroxine Sodium (Synthroid -) 75 mcg PO DAILY@0700 [facility] Last Admin: 10/03/17 06:10 Dose: 75 mcg Pantoprazole Sodium (Protonix -) 40 mg PO DAILY [facility] Last Admin: 10/03/17 09:34 Dose: 40 mg Rivaroxaban (Xarelto -) 20 mg PO DAILY@1800 [facility] Last Admin: 10/02/17 17:08 Dose: 20 mg Sotalol HCl (Betapace -) 80 mg PO BID [facility] Last Admin: 10/03/17 09:33 Dose: 80 mg Sotalol HCl (Betapace -) 80 mg PO ONCE ONE Stop: 10/03/17 15:01 Verapamil HCl (Calan -) 40 mg PO TID [facility] Last Admin: 10/03/17 06:10 Dose: 40 mg - Objective Vital Signs: Vital Signs Temperature 98.4 F 10/03/17 09:00 Pulse Rate 114 H 10/03/17 09:00 Respiratory Rate 20 10/03/17 09:00 Blood Pressure 126/67 10/03/17 09:00 O2 Sat by Pulse Oximetry (%) 97 10/02/17 20:00 Constitutional: Yes: Calm Eyes: Yes: WNL HENT: Yes: WNL Neck: Yes: WNL Cardiovascular: Yes: Pulse Irregular Respiratory: Yes: WNL Gastrointestinal: Yes: WNL ...Rectal Exam: Yes: Deferred Genitourinary: Yes: WNL Breast(s): Yes: WNL Edema: No Neurological: Yes: Alert Labs: CBC, BMP 09/30/17 17:57 10/02/17 05:30 INR, PTT INR 1.07 (0.82-1.09) 09/30/17 17:57 Assessment/Plan Continue same trt Cardiovertion in am
[2017-10-03] MEDS ORDERED: SOTALOL HCL 80 MG TABLET (FP) PO ONE (15:00)
[2017-10-03] MEDS: RIVAROXABAN 20 MG TABLET PO SCH (17:10)
[2017-10-04 06:19] LABS: BASO % 0.9 % (0-2.0); EOS % 2.5 % (0-4.5); HEMATOCRIT 39.8 % (32.4-45.2); HEMOGLOBIN 13.9 GM/dL (10.7-15.3); LYMPH % 57.7 % (8-40); MCH 30.8 pg (25.7-33.7); MCHC 34.9 g/dl (32.0-36.0); MEAN CELL VOLUME 88.1 fl (80-96); MEAN PLT VOLUME 9.2 fl (7.5-11.1); MONO % 8.3 % (3.8-10.2); NEUT % 30.6 % (42.8-82.8); PLATELET COUNT 240 K/MM3 (134-434); RBC 4.51 M/mm3 (3.60-5.2); RDW 13.3 % (11.6-15.6); WHITE BLOOD COUNT 6.8 K/mm3 (4.0-10.0)
[2017-10-04] MEDS: LEVOTHYROXINE NA 75 MCG TABLET (FP) PO SCH (06:31)
[2017-10-04] MEDS: VERAPAMIL HCL 40 MG TABLET (FP) PO SCH ×2 (06:31→14:58)
[2017-10-04 07:00] LABS: ANION GAP 8 (8-16); BLOOD UREA NITROGEN 15 mg/dL (7-18); CALCIUM 8.5 mg/dL (8.5-10.1); CHLORIDE 104 mmol/L (98-107); CO2 26 mmol/L (21-32); CREATININE 0.8 mg/dL (0.55-1.02); GLUCOSE,RANDOM 88 mg/dL (74-106); POTASSIUM 3.4 mmol/L (3.5-5.1); SODIUM 138 mmol/L (136-145)
[2017-10-04] MEDS ORDERED: POTASSIUM CHLORIDE ORAL LIQUID 20 MEQ/15 ML PO ONE (09:19)
--- NOTE | 2017-10-04 09:23 | PN ---
Progress Note, Physician Chief Complaint: Feels very anxious History of Present Illness: Scheduled for cardiovertion K low 3.4 will give 40 meq po now - Current Medication List Current Medications: Active Medications Acetaminophen (Tylenol -) 650 mg PO Q6H PRN PRN Reason: FEVER Last Admin: 10/01/17 18:57 Dose: 650 mg Bupropion HCl (Wellbutrin Xl -) 150 mg PO DAILY [facility] Last Admin: 10/03/17 09:34 Dose: 150 mg Levothyroxine Sodium (Synthroid -) 75 mcg PO DAILY@0700 [facility] Last Admin: 10/04/17 06:31 Dose: Not Given Pantoprazole Sodium (Protonix -) 40 mg PO DAILY [facility] Last Admin: 10/03/17 09:34 Dose: 40 mg Potassium Chloride (Potassium Chloride Oral Liquid) 40 meq PO ONCE ONE Stop: 10/04/17 09:20 Rivaroxaban (Xarelto -) 20 mg PO DAILY@1800 [facility] Last Admin: 10/03/17 17:10 Dose: 20 mg Sotalol HCl (Betapace -) 80 mg PO BID [facility] Last Admin: 10/03/17 21:20 Dose: 80 mg Verapamil HCl (Calan -) 40 mg PO TID [facility] Last Admin: 10/04/17 06:31 Dose: Not Given - Objective Vital Signs: Vital Signs Temperature 97.8 F 10/04/17 05:00 Pulse Rate 132 H 10/04/17 05:00 Respiratory Rate 22 10/04/17 05:00 Blood Pressure 114/67 10/04/17 05:00 O2 Sat by Pulse Oximetry (%) 98 10/03/17 22:00 Eyes: Yes: WNL HENT: Yes: WNL Neck: Yes: WNL Cardiovascular: Yes: Pulse Irregular Respiratory: Yes: WNL Gastrointestinal: Yes: Normal Bowel Sounds ...Rectal Exam: Yes: Deferred Genitourinary: Yes: WNL Breast(s): Yes: WNL Musculoskeletal: Yes: Muscle Weakness Edema: No Integumentary: Yes: WNL Neurological: Yes: Alert Labs: CBC, BMP 10/04/17 05:30 10/04/17 05:30 INR, PTT INR 1.07 (0.82-1.09) 09/30/17 17:57
[2017-10-04] MEDS: SOTALOL HCL 80 MG TABLET (FP) PO SCH (09:40)
[2017-10-04] MEDS: PANTOPRAZOLE 40 MG TABLET (FP) PO SCH (09:40)
[2017-10-04] MEDS ORDERED: LIDOCAINE HCL/PF 2% SDV 5ML VIAL ONE (12:21)
[2017-10-04] MEDS ORDERED: PROPOFOL 20 ML ONE (12:21)
[2017-10-04 13:12] VITALS: BP 100/67; PULSE 50
--- NOTE | 2017-10-04 13:12 | PN ---
Progress Note, Physician History of Present Illness: stable post electroconversion stable - Current Medication List Current Medications: Active Medications Acetaminophen (Tylenol -) 650 mg PO Q6H PRN PRN Reason: FEVER Last Admin: 10/01/17 18:57 Dose: 650 mg Bupropion HCl (Wellbutrin Xl -) 150 mg PO DAILY [facility] Last Admin: 10/03/17 09:34 Dose: 150 mg Levothyroxine Sodium (Synthroid -) 75 mcg PO DAILY@0700 [facility] Last Admin: 10/04/17 06:31 Dose: Not Given Pantoprazole Sodium (Protonix -) 40 mg PO DAILY [facility] Last Admin: 10/04/17 09:40 Dose: 40 mg Rivaroxaban (Xarelto -) 20 mg PO DAILY@1800 [facility] Last Admin: 10/03/17 17:10 Dose: 20 mg Sotalol HCl (Betapace -) 80 mg PO BID [facility] Last Admin: 10/04/17 09:40 Dose: 80 mg Verapamil HCl (Calan -) 40 mg PO TID [facility] Last Admin: 10/04/17 06:31 Dose: Not Given - Objective Vital Signs: Vital Signs Temperature 98.1 F 10/04/17 12:42 Pulse Rate 50 L 10/04/17 13:12 Respiratory Rate 20 10/04/17 13:12 Blood Pressure 100/67 10/04/17 13:12 O2 Sat by Pulse Oximetry (%) 98 10/04/17 13:12 Constitutional: Yes: No Distress, Calm Cardiovascular: Yes: Regular Rate and Rhythm Respiratory: Yes: Regular, CTA Bilaterally Gastrointestinal: Yes: Normal Bowel Sounds, Soft Musculoskeletal: Yes: WNL Extremities: Yes: WNL Neurological: Yes: Alert, Oriented Psychiatric: Yes: Alert, Oriented Labs: CBC, BMP 10/04/17 05:30 10/04/17 05:30 INR, PTT INR 1.07 (0.82-1.09) 09/30/17 17:57 Assessment/Plan Problem List - Problems (1) Atrial fibrillation with rapid ventricular response Code(s): I48.91 - UNSPECIFIED ATRIAL FIBRILLATION (2) S/P radiofrequency ablation operation for arrhythmia Code(s): Z98.890 - OTHER SPECIFIED POSTPROCEDURAL STATES; Z86.79 - PERSONAL HISTORY OF OTHER DISEASES OF THE CIRCULATORY SYSTEM (3) Hypertensive heart disease Code(s): I11.9 - HYPERTENSIVE HEART DISEASE WITHOUT HEART FAILURE Qualifiers: Heart failure presence: without heart failure Qualified Code(s): I11.9 - Hypertensive heart disease without heart failure (4) Hypothyroidism Code(s): E03.9 - HYPOTHYROIDISM, UNSPECIFIED Qualifiers: Hypothyroidism type: unspecified Qualified Code(s): E03.9 - Hypothyroidism , unspecified (5) Near syncope Code(s): R55 - SYNCOPE AND COLLAPSE (6) SOB (shortness of breath) Code(s): R06.02 - SHORTNESS OF BREATH (7) UTI (urinary tract infection) Code(s): N39.0 - URINARY TRACT INFECTION, SITE NOT SPECIFIED Qualifiers: Urinary tract infection type: site unspecified Hematuria presence: without hematuria Qualified Code(s): N39.0 - Urinary tract infection, site not specified plan continue current mgmt stopped abx rest as per the team and cardiology monitor post cardioversion
[2017-10-04 13:14] VITALS: TEMP 98.2
--- NOTE | 2017-10-04 13:15 | PN ---
Progress Note, Physician Chief Complaint: Events noted Remains in AF with RVR at times For synchronized cardioversion History of Present Illness: Patient was seen and examined. Awake and alert. Chart was reviewed Denies chest pain or SOB S/P synchronized cardioversion to sinus rhythm - Current Medication List Current Medications: Active Medications Acetaminophen (Tylenol -) 650 mg PO Q6H PRN PRN Reason: FEVER Last Admin: 10/01/17 18:57 Dose: 650 mg Bupropion HCl (Wellbutrin Xl -) 150 mg PO DAILY [facility] Last Admin: 10/03/17 09:34 Dose: 150 mg Levothyroxine Sodium (Synthroid -) 75 mcg PO DAILY@0700 [facility] Last Admin: 10/04/17 06:31 Dose: Not Given Pantoprazole Sodium (Protonix -) 40 mg PO DAILY [facility] Last Admin: 10/04/17 09:40 Dose: 40 mg Rivaroxaban (Xarelto -) 20 mg PO DAILY@1800 [facility] Last Admin: 10/03/17 17:10 Dose: 20 mg Sotalol HCl (Betapace -) 80 mg PO BID [facility] Last Admin: 10/04/17 09:40 Dose: 80 mg Verapamil HCl (Calan -) 40 mg PO TID [facility] Last Admin: 10/04/17 06:31 Dose: Not Given - Objective Vital Signs: Vital Signs Temperature 98.2 F 10/04/17 13:13 Pulse Rate 50 L 10/04/17 13:13 Respiratory Rate 18 10/04/17 13:13 Blood Pressure 100/67 10/04/17 13:13 O2 Sat by Pulse Oximetry (%) 98 10/04/17 13:13 HENT: Yes: Atraumatic Neck: Yes: Supple Cardiovascular: Yes: Regular Rate and Rhythm, Bradycardia, S1, S2 Respiratory: Yes: CTA Bilaterally Gastrointestinal: Yes: Normal Bowel Sounds, Soft. No: Tenderness Edema: No Additional Findings/Remarks: - Review of Systems Constitutional: denies: Chills, Fever Cardiovascular: denies: Chest Pain, (+) Palpitations, denies: Shortness of Breath Respiratory: denies: Cough, Hemoptysis, Orthopnea, SOB, SOB on Exertion Gastrointestinal: denies: Abdominal Pain, Constipation, Diarrhea, Melena, Nausea , Rectal Bleeding, Vomiting Genitourinary: denies: Dysuria, Hematuria Musculoskeletal: denies: Back Pain, Joint Pain Neurological: denies: Dizziness, Headache, Numbness, Parasthesia, Seizure, Syncope, Weakness Labs: CBC, BMP 10/04/17 05:30 10/04/17 05:30 INR, PTT INR 1.07 (0.82-1.09) 09/30/17 17:57 Problem List - Problems (1) Atrial fibrillation with rapid ventricular response Code(s): I48.91 - UNSPECIFIED ATRIAL FIBRILLATION (2) Hypertensive heart disease Code(s): I11.9 - HYPERTENSIVE HEART DISEASE WITHOUT HEART FAILURE Qualifiers: Heart failure presence: without heart failure Qualified Code(s): I11.9 - Hypertensive heart disease without heart failure (3) Hypothyroidism Code(s): E03.9 - HYPOTHYROIDISM, UNSPECIFIED Qualifiers: Hypothyroidism type: unspecified Qualified Code(s): E03.9 - Hypothyroidism , unspecified (4) S/P radiofrequency ablation operation for arrhythmia Code(s): Z98.890 - OTHER SPECIFIED POSTPROCEDURAL STATES; Z86.79 - PERSONAL HISTORY OF OTHER DISEASES OF THE CIRCULATORY SYSTEM (5) UTI (urinary tract infection) Code(s): N39.0 - URINARY TRACT INFECTION, SITE NOT SPECIFIED Qualifiers: Urinary tract infection type: site unspecified Hematuria presence: without hematuria Qualified Code(s): N39.0 - Urinary tract infection, site not specified Assessment/Plan 1. Paroxysmal atrial fibrillation h/o RFA with RVR - s/p cardioversion to sinus rhythm 2. Hypertensive heart disease 3. Hypothyroidism 4. Demand ischemia 5. Hyperlipidemia with statin intolerance 6. OSAS compliant with CPAP 7. Diastolic dysfunction, euvolemic PLAN: 1. Continue Sotalol as tolerated and also continue Verapamil for improved rate- control. Hold ARB pending improved hemodynamics and continue Xarelto 2. If AF persists despite cardioversion, she may need RFA again 3. Discharge planning Discussed with Dr. Penn this morning Eldon Sorensen MD
[2017-10-04] MEDS ORDERED: PT OWN MED DRAWER 7, Y5N ONE ×2 (14:05→14:12)
--- NOTE | 2017-10-04 16:03 | EKG ---
Test Reason : Blood Pressure : / mmHG Vent. Rate : 050 BPM Atrial Rate : 050 BPM P-R Int : 176 ms QRS Dur : 082 ms QT Int : 504 ms P-R-T Axes : 014 -13 005 degrees QTc Int : 459 ms SINUS BRADYCARDIA POSSIBLE LEFT ATRIAL ENLARGEMENT NONSPECIFIC ST AND T WAVE ABNORMALITY ABNORMAL ECG WHEN COMPARED WITH ECG OF 30-SEP-2017 17:31, SINUS RHYTHM HAS REPLACED ATRIAL FIBRILLATION VENT. RATE HAS DECREASED BY 93 BPM Confirmed by ISA HOOD MD ([id number]) on 10/04/2017 4:02:55 PM Referred By: SANA MOSS DR Confirmed By:ISA HOOD MD
[2017-10-04] MEDS: RIVAROXABAN 20 MG TABLET PO SCH (17:24)
== END 2017-10-04 06:50 | disposition home or self-care (01) | DRG 309 ==
LOC: JER 17:16 → JERBED 19:45 → J4W 22:52
PROVIDERS: ADMIT Internal Medicine; ATTEND Internal Medicine
PROC: 5A2204Z Restoration of Cardiac Rhythm, Single (ICD-10-PCS; principal; 2017-10-04 11:00)
DX: I48.0 Paroxysmal atrial fibrillation (principal); I24.8 Other forms of acute ischemic heart disease; N39.0 Urinary tract infection, site not specified; I11.9 Hypertensive heart disease without heart failure; E03.9 Hypothyroidism, unspecified; E78.5 Hyperlipidemia, unspecified; G47.33 Obstructive sleep apnea (adult) (pediatric); E66.9 Obesity, unspecified; Z68.32 Body mass index [BMI] 32.0-32.9, adult
CPT/HCPCS: 36415; 71045-TC-FY; 80048; 80053; 81003; 81015; 82310; 82550; 83605; 83735; 83880; 84100; 84443; 84484; 85025; 85610; 87040; 87086; 93005; 93010; 99285-25; J0131